=== PATIENT | female | born 1995 | race Caucasian/White ===

== ENCOUNTER 2018-01-05 21:11 | Observation (INO) | payer OTHER ==
[2018-01-05 22:05] LABS: Amphetamine,Urine NEGATIVE (NEGATIVE); Barbiturate,Urine NEGATIVE (NEGATIVE); Benzodiazepine,Urine NEGATIVE (NEGATIVE); Cocaine,Urine NEGATIVE (NEGATIVE); Methadone,Urine NEGATIVE (NEGATIVE); Opiate,Urine NEGATIVE (NEGATIVE); PCP,Urine NEGATIVE (NEGATIVE); THC,Urine NEGATIVE (NEGATIVE)
[2018-01-05 22:30] LABS: Appearance CLEAR (CLEAR); Bilirubin NEGATIVE (NEGATIVE); Blood NEGATIVE Ery/ul (0-5); Glucose NEGATIVE (NEGATIVE); Ketones SMALL (NEGATIVE); Leukocyte Esterase 1+ (NEGATIVE); Nitrite NEGATIVE (NEGATIVE); Protein,Urine Dip NEGATIVE (Negative); Specific Gravity 1.005 (1.005-1.025); Urobilinogen NORMAL mg/dL (0-1)
[2018-01-05 22:31] LABS: Bacteria FEW /HPF (NEGATIVE); Epithelial Cells FEW /HPF (FEW); WBC 15-25 /HPF (0-5)
[2018-01-05] MEDS ORDERED: Sodium Chloride 0.9% 1000 ML 1,000 ML IV STA (22:56)
[2018-01-06] MEDS ORDERED: Lactated Ringers 1,000 ML IV SCH (00:01)
[2018-01-06] MEDS ORDERED: BRETHINE 1 MG/ML SQ ONE (00:01)
[2018-01-06] MEDS ORDERED: Tums EX 750 MG PO PRN (07:58)
[2018-01-06 08:36] VITALS: BP 114/57; PULSE 75
--- NOTE | 2018-01-06 08:55 | XRAY ---
Indication: Evaluate cervical length. Two-dimensional limited transvaginal pelvic ultrasound was performed to evaluate cervical length. Cervix is closed and cervical length is 3.3 cm.
[2018-01-06] MEDS ORDERED: Augmentin 875-125 Tablet PO SCH (10:00)
== END 2018-01-06 11:50 | disposition home or self-care (01) ==
LOC: OB 21:11
PROVIDERS: ADMIT Family Medicine; ATTEND Family Medicine
DX: Z34.81 Encounter for supervision of other normal pregnancy, first trimester (principal)
CPT/HCPCS: 76817; 80307; 81000; 87086; G0378; A9270-GY

== ENCOUNTER 2018-06-21 15:36 | Emergency (ER) | payer MEDICAID, OTHER ==
[2018-06-21] MEDS ORDERED: Zofran 4 MG/2 ML VIAL IV ONE (16:38)
[2018-06-21] MEDS ORDERED: Sodium Chloride 0.9% 1000 ML 1,000 ML IV STA (16:38)
--- NOTE | 2018-06-21 16:38 | ERPHSYRPT ---
- History of Present Illness Time Seen by Provider: 06/21/18 16:34 Source: patient Exam Limitations: no limitations Patient Subjective Stated Complaint: Pt states "I started my monthly yesterday and today my flow has been much heavier than normal and I have passed some decent size clots. I have been sleeping more than normal today and I am a little dizzy." Triage Nursing Assessment: Pt alert and oriented X 3, skin pwd. Pt ambulates with an upright steady gait, able to speak in clear full sentences. pt in no apparent respiratory distress. Physician History: The patient is a 22-year-old female complaining of starting her menstrual cycle yesterday with heavier bleeding than normal. The patient is not concerned. She passed some clots. Her fianc is worried and "made her come in ". She has been sleeping today. She has been lightheaded. Her last menstrual period was one month ago. She has not practiced protected sex. She is slightly nauseated. She thinks her fianc wants to know if she is . Timing/Duration: yesterday, gradual onset, improved Activites at Onset: none Quality: cramping Onset Location: pelvic pain Pain Radiation: none Severity of Pain-Max: moderate Severity of Pain-Current: moderate Prior abdominal problems: none Sexual intercourse history: less than 2 months ago Modifying Factors: Improves With: nothing Associated Symptoms: nausea Allergies/Adverse Reactions: cephalexin [From Keflex] Allergy (Verified 01/05/18 21:44) Home Medications: No Reportable Medications [No Reported Medications] 06/21/18 [History] Hx Tetanus, Diphtheria Vaccination/Date Given: No Hx Influenza Vaccination/Date Given: No Hx Pneumococcal Vaccination/Date Given: No - Review of Systems Constitutional: No Fever, No Chills Eyes: No Symptoms Ears, Nose, & Throat: No Symptoms Respiratory: No Cough, No Dyspnea Cardiac: No Chest Pain, No Edema, No Syncope Abdominal/Gastrointestinal: Abdominal Pain (cramping), Nausea Genitourinary Symptoms: Menorrhagia, Vaginal Bleeding, No Dysuria Musculoskeletal: No Back Pain, No Neck Pain Skin: No Rash Neurological: No Dizziness, No Focal Weakness, No Sensory Changes Psychological: No Symptoms Endocrine: No Symptoms Hematologic/Lymphatic: No Symptoms Immunological/Allergic: No Symptoms All Other Systems: Reviewed and Negative - Past Medical History Pertinent Past Medical History: Yes Neurological History: No Pertinent History ENT History: No Pertinent History Cardiac History: No Pertinent History Respiratory History: No Pertinent History Endocrine Medical History: No Pertinent History Musculoskeletal History: No Pertinent History GI Medical History: No Pertinent History History: No Pertinent History Psycho-Social History: No Pertinent History Female Reproductive Disorders: No Pertinent History - Past Surgical History Past Surgical History: No - Social History Smoking Status: Current every day smoker How long have you smoked: 4 years Exposure to second hand smoke: Yes Drug Use: none Patient Lives Alone: No - Female History Hx Last Menstrual Period: 06/20/2018 Hx Now: (unsure) - Nursing Vital Signs Nursing Vital Signs: Initial Vital Signs Temperature 98.9 F 06/21/18 15:43 Pulse Rate 70 06/21/18 15:43 Respiratory Rate 16 06/21/18 15:43 Blood Pressure 133/71 06/21/18 15:43 O2 Sat by Pulse Oximetry 98 06/21/18 15:43 Pain Scale Pain Intensity 4 - Physical Exam General Appearance: no apparent distress, alert Eye Exam: PERRL/EOMI, eyes nml inspection Ears, Nose, Throat Exam: normal ENT inspection, TMs normal, pharynx normal, moist mucous membranes Neck Exam: normal inspection, non-tender, supple, full range of motion Respiratory Exam: normal breath sounds, lungs clear, No respiratory distress Cardiovascular Exam: regular rate/rhythm, normal heart sounds, normal peripheral pulses Gastrointestinal/Abdomen Exam: soft, normal bowel sounds Pelvic Exam: not done Rectal Exam: not done Back Exam: normal inspection, normal range of motion, No CVA tenderness, No vertebral tenderness Extremity Exam: normal inspection, normal range of motion, pelvis stable Neurologic Exam: alert, oriented x 3, cooperative, food service ambassador II-XII nml as tested, normal mood/affect, sensation nml, No motor deficits Skin Exam: normal color, warm, dry Lymphatic Exam: No adenopathy SpO2 Interpretation: normal SpO2: 95 Oxygen Delivery: Room Air Ordered Tests: Active Orders 24 hr Category Date Time Status IV Insertion STAT Care 06/21/18 16:38 Active BMP Stat Lab 06/21/18 16:38 Completed CBC W DIFF Stat Lab 06/21/18 16:38 Completed HCG QUALITATIVE,SERUM Stat Lab 06/21/18 Completed Lactic Acid Stat Lab 06/21/18 16:38 Completed UA W/RFX UR CULTURE Stat Lab 06/21/18 16:25 Completed Medication Summary Generic Name Dose Route Start Last Admin Trade Name Justine PRN Reason Stop Dose Admin Sodium Chloride 1,000 mls @ 999 mls/hr 06/21/18 16:38 06/21/18 16:52 Sodium Chloride 0.9% 1000 Ml IV 06/21/18 17:38 999 mls/hr .[id number] STA Administration Discontinued Medications Generic Name Dose Route Start Last Admin Trade Name Justine PRN Reason Stop Dose Admin Sodium Chloride Confirm 06/21/18 16:43 Sodium Chloride 0.9% 1000 Ml Administered 06/21/18 16:44 Dose 1,000 mls @ ud .ROUTE .STK-MED ONE Ondansetron HCl 4 mg 06/21/18 16:38 06/21/18 16:51 Zofran 4 Mg/2 Ml Vial IV 06/21/18 16:39 4 mg STAT ONE Administration Ondansetron HCl Confirm 06/21/18 16:42 Zofran 4 Mg/2 Ml Vial Administered 06/21/18 16:43 Dose 4 mg .ROUTE .STK-MED ONE Lab/Rad Data: Laboratory Result Diagrams 06/21/18 16:38 06/21/18 16:38 Laboratory Results 06/21/18 06/21/18 06/21/18 Range/Units Unknown 16:38 16:38 WBC (4.0-10.5) K/mm3 RBC (4.1-5.4) M/mm3 Hgb (12.0-16.0) gm/dl Hct (35-47) % MCV (78-100) fl MCH (26-32) pg MCHC (32-36) g/dl RDW (11.5-14.0) % Plt Count (150-450) K/mm3 MPV (6-9.5) fl Gran % (36.0-66.0) % Eos # (Auto) (0-0.5) Absolute Lymphs (auto) (1.0-4.6) Absolute Monos (auto) (0.0-1.3) Lymphocytes % (24.0-44.0) % Monocytes % (0.0-12.0) % Eosinophils % (0.00-5.0) % Basophils % (0.0-0.4) % Absolute Granulocytes (1.4-6.9) Basophils # (0-0.4) Sodium 141 (137-145) mmol/L Potassium 4.1 (3.5-5.1) mmol/L Chloride 108 H (98-107) mmol/L Carbon Dioxide 25 (22-30) mmol/L Anion Gap 12.5 (5-15) MEQ/L BUN 14 (7-17) mg/dL Creatinine 0.54 (0.52-1.04) mg/dL Estimated GFR > 60.0 ML/MIN Glucose 86 (74-106) mg/dL Lactic Acid 0.7 (0.4-2.0) Calcium 9.1 (8.4-10.2) mg/dL Serum , Qual NEGATIVE (Negative) Urine Color (YELLOW) Urine Appearance (CLEAR) Urine pH (5-6) Ur Specific Partridge (1.005-1.025) Urine Protein (Negative) Urine Ketones (NEGATIVE) Urine Blood (0-5) Yves/ul Urine Nitrite (NEGATIVE) Urine Bilirubin (NEGATIVE) Urine Urobilinogen (0-1) mg/dL Ur Leukocyte Esterase (NEGATIVE) Urine WBC (Auto) (0-5) /HPF Urine RBC (Auto) (0-2) /HPF U Epithel Cells (Auto) (FEW) /HPF Urine Bacteria (Auto) (NEGATIVE) /HPF Urine Mucus (Auto) (NEGATIVE) /HPF Urine Culture Reflexed (NO) Urine Glucose (NEGATIVE) mg/dL 06/21/18 06/21/18 Range/Units 16:38 16:25 WBC 9.6 (4.0-10.5) K/mm3 RBC 4.96 (4.1-5.4) M/mm3 Hgb 14.3 (12.0-16.0) gm/dl Hct 43.3 (35-47) % MCV 87.3 (78-100) fl MCH 28.8 (26-32) pg MCHC 33.0 (32-36) g/dl RDW 13.4 (11.5-14.0) % Plt Count 297 (150-450) K/mm3 MPV 9.7 H (6-9.5) fl Gran % 63.4 (36.0-66.0) % Eos # (Auto) 0.37 (0-0.5) Absolute Lymphs (auto) 2.40 (1.0-4.6) Absolute Monos (auto) 0.70 (0.0-1.3) Lymphocytes % 25.0 (24.0-44.0) % Monocytes % 7.3 (0.0-12.0) % Eosinophils % 3.9 (0.00-5.0) % Basophils % 0.4 (0.0-0.4) % Absolute Granulocytes 6.09 (1.4-6.9) Basophils # 0.04 (0-0.4) Sodium (137-145) mmol/L Potassium (3.5-5.1) mmol/L Chloride (98-107) mmol/L Carbon Dioxide (22-30) mmol/L Anion Gap (5-15) MEQ/L BUN (7-17) mg/dL Creatinine (0.52-1.04) mg/dL Estimated GFR ML/MIN Glucose (74-106) mg/dL Lactic Acid (0.4-2.0) Calcium (8.4-10.2) mg/dL Serum , Qual (Negative) Urine Color YELLOW (YELLOW) Urine Appearance SLIGHTLY CLOUDY (CLEAR) Urine pH 7.0 (5-6) Ur Specific [place]ridge 1.025 (1.005-1.025) Urine Protein NEGATIVE (Negative) Urine Ketones NEGATIVE (NEGATIVE) Urine Blood MODERATE (0-5) Yves/ul Urine Nitrite NEGATIVE (NEGATIVE) Urine Bilirubin NEGATIVE (NEGATIVE) Urine Urobilinogen 4 (0-1) mg/dL Ur Leukocyte Esterase NEGATIVE (NEGATIVE) Urine WBC (Auto) 3-5 (0-5) /HPF Urine RBC (Auto) 3-5 (0-2) /HPF U Epithel Cells (Auto) RARE (FEW) /HPF Urine Bacteria (Auto) NONE (NEGATIVE) /HPF Urine Mucus (Auto) SLIGHT (NEGATIVE) /HPF Urine Culture Reflexed NO (NO) Urine Glucose NEGATIVE (NEGATIVE) mg/dL - Progress Progress: improved Air Movement: good Blood Culture(s) Obtained: No Antibiotics given: No Counseled pt/family regarding: lab results, diagnosis - Departure Time of Disposition: 17:14 Departure Disposition: Home Clinical Impression: Menorrhagia Condition: Stable Critical Care Time: No Additional Instructions: You are having an unusually difficult menstrual cycle this time. You were given fluids by IV. You are not take Tylenol and ibuprofen as needed.
[2018-06-21] MEDS ORDERED: Zofran 4 MG/2 ML VIAL ONE (16:42)
[2018-06-21] MEDS ORDERED: Sodium Chloride 0.9% 1000 ML 1,000 ML ONE (16:43)
[2018-06-21 16:49] LABS: Appearance SLIGHTLY CLOUDY (CLEAR); Bilirubin NEGATIVE (NEGATIVE); Blood MODERATE Ery/ul (0-5); Epithelial Cells RARE /HPF (FEW); Glucose NEGATIVE (NEGATIVE); Ketones NEGATIVE (NEGATIVE); Leukocyte Esterase NEGATIVE (NEGATIVE); Mucus SLIGHT /HPF (NEGATIVE); Nitrite NEGATIVE (NEGATIVE); Protein,Urine Dip NEGATIVE (Negative); Specific Gravity 1.025 (1.005-1.025); Urobilinogen 4 mg/dL (0-1)
[2018-06-21 16:56] LABS: BASOPHIL % 0.4 % (0.0-0.4); Basophil (Absolute #) 0.04 (0-0.4); Eosinophil % 3.9 % (0.00-5.0); Eosinophil (Absolute #) 0.37 (0-0.5); Granulocytes % 63.4 % (36.0-66.0); Hematocrit 43.3 % (35-47); Hemoglobin 14.3 gm/dl (12.0-16.0); Mean Cell Volume 87.3 fl (78-100); Mean Corpuscular Hemoglobin 28.8 pg (26-32); Mean Platelet Volume 9.7 fl (6-9.5); Monocytes % 7.3 % (0.0-12.0); Platelet Count 297 K/mm3 (150-450); Red Blood Count 4.96 M/mm3 (4.1-5.4); Red Cell Distribution Width 13.4 % (11.5-14.0); White Blood Count 9.6 K/mm3 (4.0-10.5)
[2018-06-21 17:00] VITALS: PULSE 70
[2018-06-21 17:06] LABS: ANION GAP 12.5 MEQ/L (5-15); BLOOD UREA NITROGEN 14 mg/dL (7-17); CHLORIDE 108 mmol/L (98-107); Calcium 9.1 mg/dL (8.4-10.2); Carbon Dioxide 25 mmol/L (22-30); Creatinine 1 0.54 mg/dL (0.52-1.04); Glucose 86 mg/dL (74-106); Potassium 4.1 mmol/L (3.5-5.1); SODIUM 141 mmol/L (137-145)
[2018-06-21 17:41] VITALS: BP 111/71; O2SAT 97
== END 2018-06-21 17:42 | disposition home or self-care (01) ==
LOC: ED 15:36
DX: N92.0 Excessive and frequent menstruation with regular cycle (principal)
CPT/HCPCS: 36000; 36415; 80048; 81001; 81025; 83605; 85025; 96360; 96374; 99284; J2405